=== PATIENT | female | born 1990 | race Caucasian/White ===

== ENCOUNTER 2016-03-30 06:24 | Inpatient (IN) | payer OTHER ==
[~2016-03-30] VITALS: Ht 157.5 cm; Wt 81.4 kg
[~2016-03-30 06:24] MED LIST: CITA20TA9 PO; PRENTAB65 PO
[2016-04-05] MEDS ORDERED: LACTATED RINGER'S 1000ML 1,000 ML IV PRN (08:14)
[2016-04-05] MEDS ORDERED: LACTATED RINGER'S 1000ML 500 ML IV PRN ×2 (08:16→14:36)
[2016-04-05] MEDS ORDERED: PENICILLIN G POTASSIUM IV 6 MU in DEXTROSE 5% 250ML 250 ML IV ONE (08:30)
[2016-04-05] MEDS ORDERED: OXYTOCIN 30 UNITS/500ML NSS IV PRN ×2 (08:30→16:15)
[2016-04-05] MEDS: LACTATED RINGER'S 1000ML 1,000 ML IV SCH ×2 (08:43→14:29)
[2016-04-05 08:46] VITALS: Ht 157.5 cm; Wt 81.4 kg
--- NOTE | 2016-04-05 08:57 | HISTORY & PHYSICAL EXAMINATION ---
DATE OF ADMISSION: 04/05/2016 CHIEF COMPLAINT: Scheduled induction for postdates. HISTORY OF PRESENT ILLNESS: The patient is a 25-year-old 2, para 1 at 40 weeks and 6 days gestation, who presents to labor and delivery for a scheduled induction secondary to being postdates. Her care has been uncomplicated. She is currently 4 cm, 80% effaced, and -2 station. heart tones are category 1. She is GBS positive and will begin with penicillin for GBS prophylaxis. PAST MEDICAL HISTORY: Significant for anxiety and is currently treated with Celexa, hypothyroidism and childhood asthma. She has not used an inhaler since the age of 9. PAST SURGICAL HISTORY: The patient has 1 spontaneous vaginal delivery at term. SOCIAL HISTORY: She denies tobacco, alcohol or drug use. MEDICATIONS: vitamins, Levoxyl 88 mcg daily, and Celexa 20 mg daily. ALLERGIES: CODEINE, WHICH CAUSES A RASH. LABS: Blood type is O positive, group B strep positive, rubella immune, hepatitis B surface antigen negative, RPR nonreactive and HIV negative. PHYSICAL EXAMINATION: VITAL SIGNS: Blood pressure is 134/85, heart rate 91, respiration rate of 22, and temperature 97.7. GENERAL: The patient is awake, alert and oriented x3. She is in no acute distress. HEART: Regular rate and rhythm. LUNGS: Clear to auscultation bilaterally. ABDOMEN: Gravid uterus, appropriate for gestational age. Estimated weight is 7 pounds. Bowel sounds present x4. EXTREMITIES: No clubbing, cyanosis or calf tenderness. VAGINAL EXAM: She is 4 cm, 80% effaced, and -2 station. heart tones category 1. ASSESSMENT AND PLAN: A 25-year-old 2, para 1 at 40 weeks and 6 days gestation will be admitted to labor and delivery for a scheduled induction of labor secondary to postdates. We will begin with penicillin for GBS prophylaxis and oxytocin for augmentation. She may have her epidural upon request and anticipate vaginal delivery.
[2016-04-05 09:02] LABS: MEAN CELL VOLUME 85.5 fL (80-100); MEAN CORPUSCULAR HEMOGLOBIN 30.3 pg (25-34); MEAN CORPUSCULAR HGB CONC 35.5 g/dl (32-36); MEAN PLATELET VOLUME 13.9 fL (7.4-10.4); PLATELET COUNT 151 K/uL (130-400); RED BLOOD COUNT 3.86 M/uL (4.2-5.4); WHITE BLOOD COUNT 9.17 K/uL (4.8-10.8)
[2016-04-05] MEDS ORDERED: NURSING VERBAL MED ORDER ONE ×2 (09:15)
[2016-04-05] MEDS ORDERED: iron (09:20)
[2016-04-05] MEDS ORDERED: PENICILLIN G POTASSIUM IV 3 MU in DEXTROSE 5% 100ML 100 ML IV PRN (12:30)
[2016-04-05] MEDS ORDERED: FENTANYL 2MCG/ML ROPIV 1.25MG/ML 100ML BAG EPI ONE ×2 (13:22→15:10)
[2016-04-05] MEDS ORDERED: BUPIVACAINE 0.25% 30 ML VIAL ONE ×2 (13:22→15:09)
[2016-04-05] MEDS ORDERED: EpHEDrine SULFATE INJ 50 MG/ML AMP ONE ×2 (13:22→15:10)
[2016-04-05] MEDS ORDERED: FENTANYL CITRATE INJ 50 MCG/1 ML 2 ML VIAL ONE ×2 (13:23→15:10)
[2016-04-05] MEDS ORDERED: NALOXONE HCL INJ 1 MG in SODIUM CHLORIDE 0.9% 1000ML 1,000 ML IV PRN (14:36)
[2016-04-05] MEDS ORDERED: ONDANSETRON INJ 2 MG/ML 2 ML VIAL IV PRN (14:45)
[2016-04-05] MEDS ORDERED: DiphenhydrAMINE HCL 50 MG/ML VIAL IV PRN (14:45)
[2016-04-05] MEDS ORDERED: NALBUPHINE HCL INJ 10 MG/ML AMP IV PRN (14:45)
[2016-04-05] MEDS ORDERED: EpHEDrine SULFATE INJ 50 MG/ML AMP IV PRN (14:45)
[2016-04-05] MEDS ORDERED: NALOXONE HCL INJ 0.4 MG/1 ML VIAL/CARP IV PRN (14:45)
[2016-04-05] MEDS ORDERED: FENTANYL 2MCG/ML ROPIV 1.25MG/ML 100ML BAG EPI PRN (14:45)
[2016-04-05] MEDS ORDERED: HYDROCORTISONE ACETATE 25 MG SUPP PR PRN (16:15)
[2016-04-05] MEDS ORDERED: BENZOCAINE 20% AER SPR 82.5 GM CAN EXT PRN (16:15)
[2016-04-05] MEDS ORDERED: SUPERCREAM 0.870 % 15GM JAR EXT PRN (16:15)
[2016-04-05] MEDS ORDERED: OXYCODONE/ACETAMINOPHEN 5-325 TAB PO PRN (16:15)
[2016-04-05] MEDS ORDERED: DIPHTHERIA/TETANUS/PERTUSSIS 0.5 ML SYR/VIAL IM. ONE (16:15)
[2016-04-05] MEDS ORDERED: LANOLIN OINT EXT PRN ×2 (16:15)
--- NOTE | 2016-04-05 17:52 | DELIVERY SUMMARY ---
DATE OF OPERATION: 04/05/2016 TIME OF DELIVERY: 1445. DELIVERY OF PLACENTA: 1548. DELIVERY NOTE: The patient is a 25-year-old 2, para 1 at 40 weeks and 6 days' gestation who presented to labor and delivery on the morning of 04/05/2016 for a scheduled induction of labor secondary to post dates. She was started on oxytocin for induction. She received an epidural for anesthesia. Artificial rupture of membranes was performed at 1434 with late meconium stained amniotic fluid noted. She reached complete dilation at 1529 with the urge to push. The patient pushed to delivery at 1445. She delivered a viable male in the right occiput anterior position to an intact perineum. The baby was placed on patient's abdomen. Cord was clamped x2 and cut. Apgars were 8 at 1 minute and 9 at 5 minutes. Please see nursing notes for further baby assessment. Cord blood was then obtained and an intact placenta with 3-vessel cord was delivered at 1548. Oxytocin infusion was then begun. The lower uterine segment and vagina was cleared of any blood clot and debris. Exploration of the perineum noted a laceration below the clitoris, ascending right above the urethra which was repaired with 3-0 Vicryl in a continuous running fashion. Excellent hemostasis was noted. No other lacerations were seen. Estimated blood loss was 300 mL. Two sharps were removed from the operative field. All sponge and instrument counts were found to be correct x2. Both the patient and baby tolerated the delivery well and went to recovery with stable vital signs. I attest to the content of the Intraoperative Record and any orders documented therein. Any exceptio ns are noted below.
[2016-04-05] MEDS ORDERED: CITALOPRAM 20 MG TAB PO PRN (18:00)
--- NOTE | 2016-04-05 19:25 | Anesthesia Procedure Note ---
Anesthesia Epidural Removal Nt Date & Time Apr 05, 2016 at 19:25 Vital Signs Pain Intensity: 10.0 Notes Mental Status: alert / awake / arousable, participated in evaluation Nausea / Vomiting: adequately controlled Pain: adequately controlled Airway Patency, RR, SpO2: stable & adequate BP & HR: stable & adequate Hydration State: stable & adequate Neuraxial Anesthesia: was administered Anesthetic Complications: no major complications apparent, pt satisfied with anesthetic care Epidural: removed without complications, with tip intact
[2016-04-05 20:00] VITALS: BP 139/90; PULSE 85; TEMP 36.8
[2016-04-05 23:15] VITALS: BP 139/88; PULSE 83; TEMP 36.8
[2016-04-06 04:45] VITALS: BP 144/93; PULSE 73; TEMP 36.8
[2016-04-06] MEDS: IBUPROFEN 600 MG TAB PO PRN (07:18)
[2016-04-06 07:23] LABS: HEMATOCRIT 32.2 % (37-47)
[2016-04-06] MEDS: LEVOTHYROXINE 88 MCG TAB PO SCH (07:51)
[2016-04-06] MEDS: DOCUSATE SODIUM 100 MG CAP PO SCH ×2 (08:00→20:51)
--- NOTE | 2016-04-06 08:57 | OB/GYN Progress Note ---
UPPER EXTREMITY SURGEON Progress Note Date of Service: Apr 06, 2016. Patient is seen and examined. She feels well, no complaints. Ambulating without dizziness Voiding without difficulty Tolerating regular diet with out N&V Bleeding is minimal No MORRIS/ Change in vision/ fever/ chills/ CP/ SOB/ N&V/ Leg pain Breast feeding without problems Date Time Temp Pulse Resp B/P Pulse Ox O2 Delivery O2 Flow Rate FiO2 04/06/16 04:45 36.8 73 16 144/93 Room Air 04/05/16 23:15 36.8 83 16 139/88 Room Air 04/05/16 23:15 Room Air 04/05/16 20:00 36.8 85 18 139/90 Room Air 04/05/16 20:00 Room Air Last 24 Hours Test 04/06/16 07:02 04/06/16 08:37 Hemoglobin 11.3 g/dL Hematocrit 32.2 % PE: General: Alert, orientedx3, NAD Abd: soft, NT, fundus firm, below Umbilicus Perineum intact, Lochia rubra minimal Ext; NT, no edema, no erythema or cord bilaterally AP: 25 yo s/p , ppd# 1 VSS , borderline elevated BP, asymptomatic Plan blood work Afebrile doing well Continue routine care All questions were answered D/C home tomorrow
[2016-04-06] MEDS: FERROUS SULFATE 325 MG TAB PO SCH (08:58)
[2016-04-06] MEDS: PRENATAL VITAMIN TAB PO SCH (08:58)
--- NOTE | 2016-04-06 08:59 | Anesthesiology Progress Note ---
Anesthesia Progress Note Date of Service Apr 06, 2016. Progress Notes Called to evaluate pt who is c/o burning pain down the left leg to left foot.She had an epidural catheter placed for her .She stated she was having pain from the time of insertion.She states she is able to ambulate w/o any weakness.Motor function and strength are intact.She delivered in the lithotomy position w/epidural catheter in place.Epidural catheter has since been removed.I have explained to the patient that this may be a transient neurologic syndrome in which motor function and strength are intact, with burning type of pain that may or may not radiate down a LE.There is a positive correlation to the lithotomy position.I have explained to the patient that we shall observe her and that if not C/I,oral nsaids should be taken,ie.ibuprofen.I have explained to her that this is usually self-limiting and should resolve in days.If this persists we shall investigate further with the proper retail sales consultant.
[2016-04-06 09:30] VITALS: BP 127/75; PULSE 78; TEMP 36.8; O2SAT 97
[2016-04-06 10:12] LABS: MEAN CORPUSCULAR HGB CONC 34.4 g/dl (32-36)
[2016-04-06 10:20] LABS: HEMATOCRIT 31.7 % (37-47); MEAN CELL VOLUME 86.4 fL (80-100); MEAN CORPUSCULAR HEMOGLOBIN 29.7 pg (25-34); RED BLOOD COUNT 3.67 M/uL (4.2-5.4); WHITE BLOOD COUNT 12.17 K/uL (4.8-10.8)
[2016-04-06 10:37] LABS: MEAN PLATELET VOLUME 13.9 fL (7.4-10.4); PLATELET COUNT 141 K/uL (130-400)
[2016-04-06 10:38] LABS: BASO % 0.1 %; BASO ABS # 0.01 K/uL (0-0.2); COMPLETE YES; EOS % 0.2 %; IG% 0.2 %; LARGE PLATELETS 1+; LYMPH % 21.2 %; LYMPH ABS # 2.58 K/uL (1.2-3.4); MONO % 8.5 %; NEUT % 69.8 %; PLT ESTIMATE DECREASED
[2016-04-06 10:57] LABS: BUN/CREATININE RATIO 12.9 (10-20); CALCIUM 8.8 mg/dl (8.5-10.1); CREATININE 0.86 mg/dl (0.60-1.20); POTASSIUM 3.6 mmol/L (3.5-5.1)
[2016-04-06 10:58] LABS: ALB/GLOB RATIO 0.6 (0.9-2)
[2016-04-06 13:00] VITALS: BP 130/90; PULSE 71; TEMP 36.5; O2SAT 97
[2016-04-06] MEDS: ACETAMINOPHEN 325 MG TAB PO PRN ×2 (13:17→23:02)
[2016-04-06 16:05] VITALS: BP 122/78; PULSE 74; TEMP 36.8; O2SAT 98
[2016-04-06] MEDS ORDERED: BISACODYL 5 MG TABEC PO SCH (20:00)
[2016-04-06 23:50] VITALS: BP 148/92; PULSE 64; TEMP 36.4
[2016-04-07] MEDS ORDERED: BISACODYL 10 MG SUPP PR PRN (07:00)
[2016-04-07 07:15] VITALS: BP 125/85; PULSE 58; TEMP 36.7; O2SAT 99
[2016-04-07] MEDS: ACETAMINOPHEN 325 MG TAB PO PRN ×2 (07:35→15:22)
[2016-04-07] MEDS: LEVOTHYROXINE 88 MCG TAB PO SCH (07:37)
[2016-04-07] MEDS: DOCUSATE SODIUM 100 MG CAP PO SCH (07:37)
[2016-04-07] MEDS: PRENATAL VITAMIN TAB PO SCH (07:37)
[2016-04-07] MEDS: FERROUS SULFATE 325 MG TAB PO SCH (07:38)
[2016-04-07 07:43] LABS: HEMATOCRIT 36.8 % (37-47); MEAN CELL VOLUME 87.4 fL (80-100); MEAN CORPUSCULAR HEMOGLOBIN 29.5 pg (25-34); MEAN CORPUSCULAR HGB CONC 33.7 g/dl (32-36); MEAN PLATELET VOLUME 13.6 fL (7.4-10.4); PLATELET COUNT 170 K/uL (130-400); RED BLOOD COUNT 4.21 M/uL (4.2-5.4); WHITE BLOOD COUNT 12.09 K/uL (4.8-10.8)
[2016-04-07] MEDS ORDERED: MTR600X PO (08:25)
--- NOTE | 2016-04-07 08:27 | Discharge Instructions ---
Discharge Instructions Admission Reason for Admission: Induction Discharge Discharge Diagnosis / Problem: term delivered Discharge Goals Goal(s): Routine recovery after delivery Activity Recommendations Activity Limitations: as noted below Lifting Limitations: no more than 10 pounds Exercise/Sports Limitations: gradually increase as tolerated May Resume Sexual Activity: after follow-up appointment Shower/Bathe: no limitations Driving or Machine Use: resume 3 days after discharge . Instructions / Follow-Up Instructions / Follow-Up 6 weeks Current Hospital Diet Patient's current hospital diet: Regular OB Diet Discharge Diet Recommended Diet: Regular OB Diet Pending Studies Studies pending at discharge: no Medical Emergencies . Who to Call and When: Medical Emergencies: If at any time you feel your situation is an emergency, please call 911 immediately. . Non-Emergent Contact Non-Emergency issues call your: Primary Care Provider . . "Provider Documentation" section prepared by Aaron Magaña. VTE Core Measure Inpt VTE Proph given/why not?: Treatment not indicated
--- NOTE | 2016-04-07 08:55 | Progress Note ---
Progress Note Came to see the patient regarding a burning sensation from her left knee down to the bottom of her foot since her delivery two days ago. She states her strength is normal when she walks and she feels a pins and needles paresthesia on the bottom of her foot when walking. Her strength is 5/5 with plantar flexion and is able to feel soft touch in her leg and foot but it causes her discomfort on the bottom of her foot. I told her that it could be TNS which resolves spontaneously in a few days or it could be a minor injury from the head pressing on nerves as it descends in the canal, although that is usually the obturator nerve that is involved. I discussed this with Dr. Magaña who will follow up with her at the office in a week.
--- NOTE | 2016-04-07 08:58 | OB/GYN Progress Note ---
MONUMENT ERECTOR Progress Note Date of Service Apr 07, 2016. Subjective conversation w/ patient, physical exam Ambulation: ambulating normally Voiding: no voiding problems Passing Gas: Yes Diet Tolerance: Regular Diet Lochia: Small Feeding Type: Breast Feeding Notes: some increased pain with sensory numbness in left leg when ambulating Objective Vital Signs Date Time Temp Pulse Resp B/P Pulse Ox O2 Delivery O2 Flow Rate FiO2 04/07/16 07:15 36.7 58 16 125/85 99 Room Air 58 04/06/16 23:50 Room Air 04/06/16 23:50 36.4 64 18 148/92 04/06/16 16:05 36.8 74 18 122/78 98 Room Air 04/06/16 16:05 98 Room Air 04/06/16 13:00 36.5 71 18 130/90 97 Room Air 04/06/16 09:30 36.8 78 18 127/75 97 Room Air 04/06/16 09:30 97 Room Air Physical Exam General Appearance: WELL-APPEARING, NO APPARENT DISTRESS Abdomen: non tender, soft Fundus: Firm Extremities: non-tender, normal inspection, no pedal edema, no calf tenderness Laboratory Results Last 24 Hours Test 04/06/16 09:50 04/07/16 07:25 White Blood Count 12.17 K/uL 12.09 K/uL Red Blood Count 3.67 M/uL 4.21 M/uL Hemoglobin 10.9 g/dL 12.4 g/dL Hematocrit 31.7 % 36.8 % Mean Corpuscular Volume 86.4 fL 87.4 fL Mean Corpuscular Hemoglobin 29.7 pg 29.5 pg Mean Corpuscular Hemoglobin Concent 34.4 g/dl 33.7 g/dl Platelet Count 141 K/uL 170 K/uL Mean Platelet Volume 13.9 fL 13.6 fL Neutrophils (%) (Auto) 69.8 % Lymphocytes (%) (Auto) 21.2 % Monocytes (%) (Auto) 8.5 % Eosinophils (%) (Auto) 0.2 % Basophils (%) (Auto) 0.1 % Neutrophils # (Auto) 8.49 K/uL Lymphocytes # (Auto) 2.58 K/uL Monocytes # (Auto) 1.03 K/uL Eosinophils # (Auto) 0.03 K/uL Basophils # (Auto) 0.01 K/uL RDW Standard Deviation 44.0 fL 45.7 fL RDW Coefficient of Variation 14.1 % 14.4 % Immature Granulocyte % (Auto) 0.2 % Immature Granulocyte # (Auto) 0.03 K/uL Platelet Estimate DECREASED Large Platelets 1+ Sodium Level 143 mmol/L Potassium Level 3.6 mmol/L Chloride Level 109 mmol/L Carbon Dioxide Level 25 mmol/L Anion Gap 9.0 mmol/L Blood Urea Nitrogen 11 mg/dl Creatinine 0.86 mg/dl Est Creatinine Clear Calc Drug Dose 99.7 ml/min Estimated GFR () 109.6 Estimated GFR (Non- 94.6 BUN/Creatinine Ratio 12.9 Random Glucose 96 mg/dl Calcium Level 8.8 mg/dl Total Bilirubin 0.3 mg/dl Aspartate Amino Transf (AST/SGOT) 19 U/L Alanine Aminotransferase (ALT/SGPT) 19 U/L Alkaline Phosphatase 289 U/L Lactate Dehydrogenase 210 U/L Total Protein 5.7 gm/dl Albumin 2.2 gm/dl Globulin 3.5 gm/dl Albumin/Globulin Ratio 0.6 Assessment and Plan Post- Continue Routine Care: discharged follow up in 1 week in office
[2016-04-07] MEDS: IBUPROFEN 600 MG TAB PO PRN (11:24)
[2016-04-07 17:00] VITALS: BP_DIAS 85; PULSE 58; TEMP 36.7
[2016-04-09] MEDS ORDERED: LEVO88TA3 PO (12:06)
== END 2016-04-07 17:00 | disposition home or self-care (01) | DRG 774 ==
LOC: C.LD 04-05 08:10 → C.OBG 04-05 20:02
PROVIDERS: ADMIT Obstetrics & Gynecology; ATTEND Obstetrics & Gynecology
PROC: 3E033VJ Introduction of Other Hormone into Peripheral Vein, Percutaneous Approach (ICD-10-PCS; principal; 2016-04-05)
PROC: 10907ZC Drainage of Amniotic Fluid, Therapeutic from Products of Conception, Via Natural or Artificial Opening (ICD-10-PCS; principal; 2016-04-05)
PROC: 10E0XZZ Delivery of Products of Conception, External Approach (ICD-10-PCS; principal; 2016-04-05)
PROC: 10H073Z Insertion of Monitoring Electrode into Products of Conception, Via Natural or Artificial Opening (ICD-10-PCS; principal; 2016-04-05)
PROC: 0UQMXZZ Repair Vulva, External Approach (ICD-10-PCS; principal; 2016-04-05)
PROC: 4A1H7CZ Monitoring of Products of Conception, Cardiac Rate, Via Natural or Artificial Opening (ICD-10-PCS; principal; 2016-04-05)
PROC: 10H07YZ Insertion of Other Device into Products of Conception, Via Natural or Artificial Opening (ICD-10-PCS; principal; 2016-04-05)
DX: O48.0 Post-term pregnancy (principal); O90.89 Other complications of the puerperium, not elsewhere classified; Z37.0 Single live birth; O99.824 Streptococcus B carrier state complicating childbirth; O99.284 Endocrine, nutritional and metabolic diseases complicating childbirth; E03.9 Hypothyroidism, unspecified; O99.52 Diseases of the respiratory system complicating childbirth; J45.909 Unspecified asthma, uncomplicated; O99.344 Other mental disorders complicating childbirth; F41.9 Anxiety disorder, unspecified; O77.0 Labor and delivery complicated by meconium in amniotic fluid; O71.89 Other specified obstetric trauma; O71.82 Other specified trauma to perineum and vulva; Z3A.40 40 weeks gestation of pregnancy; Z79.899 Other long term (current) drug therapy; Z23 Encounter for immunization; M79.605 Pain in left leg; M54.9 Dorsalgia, unspecified

== ENCOUNTER 2016-04-03 15:58 | Outpatient (CLI) | payer OTHER ==
[2016-04-07] MEDS ORDERED: MTR600X PO (08:25)
[2016-04-09] MEDS ORDERED: LEVO88TA3 PO (12:06)
== END 2016-04-03 16:44 | disposition home or self-care (01) ==
LOC: C.OPB 15:58 → C.LD 15:59 → C.OPB 16:44
PROVIDERS: ATTEND Obstetrics & Gynecology
DX: O48.0 Post-term pregnancy (principal); Z3A.40 40 weeks gestation of pregnancy

== ENCOUNTER 2016-04-09 18:43 | Emergency (ER) | payer OTHER ==
[~2016-04-09] VITALS: Ht 157.5 cm; Wt 74.3 kg
[~2016-04-09 18:43] MED LIST changes: +LEVO88TA3 PO; +MTR600X PO; +iron
[2016-04-09 18:47] VITALS: TEMP 36.7; Ht 157.5 cm; Wt 74.3 kg
[2016-04-09] MEDS ORDERED: SODIUM CHLORIDE 0.9% 1000ML 1,000 ML IV STA (19:13)
[2016-04-09 19:52] LABS: BASO % 0.1 %; BASO ABS # 0.01 K/uL (0-0.2); COMPLETE YES; EOS % 1.3 %; HEMATOCRIT 36.9 % (37-47); IG% 0.2 %; LYMPH % 17.8 %; LYMPH ABS # 1.85 K/uL (1.2-3.4); MEAN CELL VOLUME 87.6 fL (80-100); MEAN CORPUSCULAR HEMOGLOBIN 29.9 pg (25-34); MEAN CORPUSCULAR HGB CONC 34.1 g/dl (32-36); MEAN PLATELET VOLUME 12.1 fL (7.4-10.4); MONO % 6.1 %; NEUT % 74.5 %; PLATELET COUNT 226 K/uL (130-400); RED BLOOD COUNT 4.21 M/uL (4.2-5.4)
[2016-04-09 20:03] LABS: INR 0.9 (0.9-1.1); PROTHROMBIN TIME (PATIENT) 9.9 SECONDS (9.0-12.0)
[2016-04-09] MEDS ORDERED: NXM/40 PO (20:11)
[2016-04-09] MEDS ORDERED: PREN1TAB51 PO (20:11)
[2016-04-09] MEDS ORDERED: CLX/20 PO (20:11)
[2016-04-09] MEDS ORDERED: IBUP-103 PO (20:11)
[2016-04-09] MEDS ORDERED: CETI10TA10 PO (20:11)
[2016-04-09 20:37] LABS: BUN/CREATININE RATIO 20.8 (10-20); CALCIUM 8.8 mg/dl (8.5-10.1); CREATININE 0.89 mg/dl (0.60-1.20); POTASSIUM 3.5 mmol/L (3.5-5.1)
--- NOTE | 2016-04-09 21:08 | EMERGENCY ROOM VISIT NOTE ---
History Report prepared by Shonda: Malina Nixon Under the Supervision of: Dr. Roland Zambrano M.D. First contact with patient: 19:04 Chief Complaint: HEADACHE Stated Complaint: DURAL HEADACHE NUMBNESS AND PAIN IN LEFT LEG History of Present Illness The patient is a 25 year old female who presents to the Emergency Room with complaints of a worsening headache with onset four days ago. She rates her pain as a 9/10. The patient had a baby via vaginal delivery four days ago. She had two epidurals. The first epidural was not successful. The second epidural hit nerves, which she describes caused a sensation as if a lightening bolt went through her left leg. She still has pain and numbness in her left leg. The night after she had the epidural, the patient developed a headache. The headache remains. The patient states that she feels fine lying down. She feels "miserable" when she stands up, with nausea and blurry vision. The patient is her . She denies LOC, fevers, chills, diaphoresis, neck pain, chest pain, breathing difficulties, vomiting, abdominal pain, melena, hematochezia, urinary symptoms, numbness, weakness, lymphadenopathy, rash, or other complaints. Source of History: patient Onset: 4 days ago Position: head Symptom Intensity: 9/10 Quality: other (headache) Timing: worsening Modifying Factors (Worsening): other (standing up ) Modifying Factors (Relieving): other (lying down) Associated Symptoms: + nausea Note: She has some blurry vision and left leg numbness and pain. Review of Systems See HPI for pertinent positives and negatives. A total of ten systems were reviewed and were otherwise negative. Past Medical & Surgical Medical Problems: (1) Dog bite (2) Lacerations of multiple sites of right arm (3) No Known Active Medical Problems (4) Post-term Family History Diabetes mellitus Hypertension Social History Smoking Status: Never Smoker Alcohol Use: none Drug Use: none Housing Status: lives with family Occupation Status: student Current/Historical Medications Scheduled Esomeprazole Magnesium (Nexium), 40 MG PO DAILY Levothyroxine Sodium (Levothyroxine Sodium), 88 MCG PO DAILY Vit W/ Ferrous Fumara (Pnv Plus Multivi), 1 TAB PO DAILY Scheduled PRN Cetirizine Hcl (Zyrtec), 10 MG PO DAILY PRN for Allergy Symptoms Citalopram (Citalopram Hydrobromide), 20 MG PO DAILY PRN for PT Discretion Ibuprofen (Ibuprofen), 600 MG PO Q4H PRN for PAIN, MORRIS, CRAMPING OR FEVER Ibuprofen Tab (Advil), 400-600 MG PO Q6H PRN for Pain Allergies Coded Allergies: Codeine (Verified Allergy, Unknown, RASH, 03/01/16) Physical Exam Vital Signs Date Time Temp Pulse Resp B/P Pulse Ox O2 Delivery O2 Flow Rate FiO2 04/09/16 23:01 72 18 120/73 99 04/09/16 22:00 78 20 120/75 99 Room Air 04/09/16 21:19 76 14 146/91 99 Room Air 04/09/16 20:33 78 04/09/16 19:32 78 20 122/70 98 Room Air 04/09/16 18:47 36.7 81 18 144/100 98 Room Air Physical Exam GENERAL: Awake, alert, uncomfortable-appearing, in no distress HENT: Normocephalic, atraumatic. Oropharynx unremarkable. EYES: Normal conjunctiva. Sclera non-icteric. NECK: Supple. No nuchal rigidity. FROM. No JVD. RESPIRATORY: Clear to auscultation. CARDIAC: Regular rate, normal rhythm. Extremities warm and well perfused. Pulses equal. ABDOMEN: Soft, non-distended. No tenderness to palpation. No rebound or guarding. No masses. RECTAL: Deferred. MUSCULOSKELETAL: Chest examination reveals no tenderness. The back is symmetrical on inspection, there are two small healing puncture wounds in the midline of the back, upper lumbar lower thoracic, no redness or drainage. There is no CVA tenderness to palpation. No joint edema. LOWER EXTREMITIES: Calves are equal size bilaterally and non-tender. No edema. No discoloration. NEURO: Normal sensorium. Normal EHL function. Increased sensitivity to the sole of the left foot, otherwise no other sensory or motor deficits noted. SKIN: No rash or jaundice noted. Medical Decision & Procedures Laboratory Results 04/09/16 19:30 Red Blood Count 4.21, Mean Corpuscular Volume 87.6, Mean Corpuscular Hemoglobin 29.9, Mean Corpuscular Hemoglobin Concent 34.1, Mean Platelet Volume 12.1, Neutrophils (%) (Auto) 74.5, Lymphocytes (%) (Auto) 17.8, Monocytes (%) (Auto) 6.1, Eosinophils (%) (Auto) 1.3, Basophils (%) (Auto) 0.1, Neutrophils # (Auto) 7.76, Lymphocytes # (Auto) 1.85, Monocytes # (Auto) 0.63, Eosinophils # (Auto) 0.13, Basophils # (Auto) 0.01 04/09/16 19:30 Test 04/09/16 19:30 White Blood Count 10.40 K/uL (4.8-10.8) Red Blood Count 4.21 M/uL (4.2-5.4) Hemoglobin 12.6 g/dL (12.0-16.0) Hematocrit 36.9 % (37-47) Mean Corpuscular Volume 87.6 fL (80-100) Mean Corpuscular Hemoglobin 29.9 pg (25-34) Mean Corpuscular Hemoglobin Concent 34.1 g/dl (32-36) Platelet Count 226 K/uL (130-400) Mean Platelet Volume 12.1 fL (7.4-10.4) Neutrophils (%) (Auto) 74.5 % Lymphocytes (%) (Auto) 17.8 % Monocytes (%) (Auto) 6.1 % Eosinophils (%) (Auto) 1.3 % Basophils (%) (Auto) 0.1 % Neutrophils # (Auto) 7.76 K/uL (1.4-6.5) Lymphocytes # (Auto) 1.85 K/uL (1.2-3.4) Monocytes # (Auto) 0.63 K/uL (0.11-0.59) Eosinophils # (Auto) 0.13 K/uL (0-0.5) Basophils # (Auto) 0.01 K/uL (0-0.2) RDW Standard Deviation 45.5 fL (36.4-46.3) RDW Coefficient of Variation 14.4 % (11.5-14.5) Immature Granulocyte % (Auto) 0.2 % Immature Granulocyte # (Auto) 0.02 K/uL (0.00-0.02) Prothrombin Time 9.9 SECONDS (9.0-12.0) Prothromb Time International Ratio 0.9 (0.9-1.1) Activated Partial Thromboplast Time 26.6 SECONDS (21.0-31.0) Partial Thromboplastin Ratio 1.0 Anion Gap 12.0 mmol/L (3-11) Est Creatinine Clear Calc Drug Dose 92.0 ml/min Estimated GFR () 105.1 Estimated GFR (Non- 90.7 BUN/Creatinine Ratio 20.8 (10-20) Calcium Level 8.8 mg/dl (8.5-10.1) Laboratory results reviewed by me Medications Administered Medications (Trade) Dose Ordered Sig/Mae Route Start Time Stop Time Status Last Admin Dose Admin Sodium Chloride (Nss 1000ml) 1,000 ml @ 999 mls/hr Q1H1M STAT IV 04/09/16 19:13 04/09/16 20:13 DC 04/09/16 19:13 999 MLS/HR ED Course 1909: The patient was evaluated in room C2. A complete history and physical exam was performed. 1912: Sodium Chloride 1000 ml @ 999 mls/hr IV 1924: I discussed the case with Dr. Rivera (anesthesiology); he has just started a case so he estimates that he will be down in one hour to evaluate the patient for a blood patch. 1930: I reevaluated the patient and updated her that Dr. Rivera will be down to see her. 2102: I reevaluated the patient; anaesthesia is getting ready to apply the blood patch. 2229: I reevaluated the patient. Discussed results and discharge instructions: She verbalized understanding and agreement. The patient is ready for discharge. Medical Decision Prior records/ancillary studies reviewed. Triage Nursing notes reviewed and agree them. The patient's history was concerning for headache. Differential diagnosis: Etiologies such as post lumbar puncture headache, migraine headache, meningitis , sinusitis, CO exposure, ICH, SAH, infection, tumor, headache, sinus thrombosis , arterial dissection, PIH, eclampsia, as well as others were entertained. Physical examination findings: As above. Non-focal. ER treatment provided: IV normal saline hydration Anesthesia consult for blood patch On reassessment the patient felt better. Diagnostics interpreted by me: The labs revealed an unremarkable CBC and chemistry panel. Coags normal. Imaging studies: Deferred Consultation: A consultation was placed with the anesthesiologist dental surgeon. The case was discussed and diagnostics were reviewed. The patient was evaluated in the ER for further treatment. Blood patch done. The patient was feeling much better. By the evaluation outlined above emergent etiologies such as meningitis, sinusitis, CO exposure, ICH, SAH, infection, temporal arteritis, tumor, sinus thrombosis, arterial dissection, eclampsia, HELLP syndrome, as well as others were deemed relatively unlikely. The patient and were informed about the findings as listed above. All questions were answered and they were pleased with the treatment. Return instructions were outlined and the patient was discharged in stable condition. Outpatient prescription management: None Referral: The patient was referred back to her primary PLANER OPERATOR / GRADER physician for follow-up in 3 days for a recheck of the current condition. The chart was completed utilizing [employer] Speech voice recognition software. Grammatical errors, random word insertions, pronoun errors, and incomplete sentences are an occasional consequence of this system due to software limitations, ambient noise, and hardware issues. Any formal questions or concerns about the content, text, or information contained within the body of this dictation should be directly addressed to the physician for clarification. Consults Time Called: 1921 Consulting Physician: Dr. Rivera (anesthesiology) Returned Call: 1924 I discussed the case with Dr. Rivera (anesthesiology); he has just started a case so he estimates that he will be down in one hour to evaluate the patient for a blood patch. Impression Primary Impression: Post lumbar puncture headache Scribe Attestation The scribe's documentation has been prepared under my direction and personally reviewed by me in its entirety. I confirm that the note above accurately reflects all work, treatment, procedures, and medical decision making performed by me. Departure Information Dispostion Home / Self-Care Referrals No Doctor, Assigned (PCP) Patient Instructions My [facility] Additional Instructions HEADACHE INSTRUCTIONS: Rest today in a quiet, peaceful, dark environment and get a full 8-10 hrs of sleep tonight. Avoid loud noises, smoke/smoking, alcohol, bright lights, stress, or physical exertion today to minimize the chance the headache may return. Continue current medications. Acetaminophen(Tylenol) may be used for fever or pain. Use 1000mg every six hours as needed. Avoid using more than 4000mg in a 24 hour period. Return to the ER for passing out, worsening headache, vision problems, neck stiffness/pain, fevers, vomiting, worsening of your condition, or as needed. Follow up with your primary physician in PLANER OPERATOR / GRADER 3 days for a recheck of your current condition.
--- NOTE | 2016-04-09 22:43 | Progress Note ---
Progress Note CC: Headache Pt is a 25 year old healthy patient post from a on Tuesday. Per chart review and patient interview, she had difficult epidural placement. Her first epidural was not adequate and was replaced during labor. Her second epidural did seem to have some effect, but the patient does not feel she had adequate relief. Review of records does not mention any return of CSF during either the initial placement or subsequent replacement. The patient does describe classic PDPH symptoms. Her headache completely abates with laying supine and is instantly excruciating with sitting or standing. She denies fever, chills, neurologic symptoms, numbness, weakness, incontinence, or photophobia. She does complain of a parasthesia on the plantar aspect of the L foot but has no foot drop. I offered the patient conservative treatment versus epidural blood patch. Risks and benefits were discussed and she elected to proceed with EBP. Patient was placed in LLD, back was prepped and draped and localized with 1% lidocaine. Epidural space was accessed with a 17G tuhoy without difficulty at the L3-4 interspace with DRISS to saline. DRISS at 4cm. At this time, an photo studio assistant rajiv 20cc of blood from the L arm in a sterile fashion. This was injected slowly in to the epidural space without any pain. After the procedure , the patient was placed supine for 5 minutes and had no headache. She layed flat for one hour and was then able to sit and stand without difficulty. Impression: 1.) PDPH. This was treated effectively with epidural blood patch. 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 No treatment necessary. This should improve without treatment, although I did recommend over the counter NSAIDs if the patient would like. If it does not improve after a few months, evaluation by neurology is appropriate. Thank you for the consultation.
[2016-04-09 23:01] VITALS: BP 120/73; PULSE 72; O2SAT 99
== END 2016-04-09 23:02 | disposition home or self-care (01) ==
LOC: C.EDB 18:44 → C.EDC 23:02
DX: G97.1 Other reaction to spinal and lumbar puncture (principal); G57.92 Unspecified mononeuropathy of left lower limb; Z79.899 Other long term (current) drug therapy